=== PATIENT | male | born 1940 | race Two or more races ===

== ENCOUNTER 2023-04-03 10:00 | Day surgery (SDC) | payer OTHER | END 2023-04-03 13:50 | disposition home or self-care (01) | LOC: AMB-ENDOS 10:00 | PROVIDERS: ATTEND Surgery | DX: D12.2 Benign neoplasm of ascending colon (principal); D12.3 Benign neoplasm of transverse colon; K63.5 Polyp of colon; K57.30 Diverticulosis of large intestine without perforation or abscess without bleeding; K64.8 Other hemorrhoids ==